=== PATIENT | female | born 1995 | race Caucasian/White ===

== ENCOUNTER 2021-06-10 09:27 | Emergency (ER) | payer SELFPAY | END 2021-06-10 11:42 | disposition home or self-care (01) | LOC: CSHERS 09:27 | DX: J06.9 Acute upper respiratory infection, unspecified (principal) | CPT/HCPCS: 71045; 87081; 87430 ==

== ENCOUNTER 2021-09-10 12:39 | Emergency (ER) | payer SELFPAY ==
[2021-09-10] MEDS ORDERED: Ketorolac Tromethamine 30 MG/ML VIAL ONE (13:08)
[2021-09-10] MEDS ORDERED: Morphine 4 MG/ML VIAL ONE ×3 (13:10→16:14)
[2021-09-10] MEDS ORDERED: Ondansetron PF 4 MG/2 ML Vial ONE ×3 (13:10→16:14)
[2021-09-10 13:20] LABS: #Basophils 0.1 10x3/uL (0.0-0.2); #Eosinphils 0.2 10x3/uL (0.0-0.5); #Monocytes 0.6 10x3/uL (0.0-1.1); #Neutrophils 8.4 10x3/uL (1.5-8.4); %Basophils 0.7 % (0.0-2.0); %Eosinophils 1.3 % (0.0-6.0); %Lymphocytes 19.8 % (18.0-47.0); %Monocytes 5.4 % (0.0-10.0); %Neutrophils 72.6 % (40.0-75.0); Hemoglobin 13.8 g/dL (12.0-15.5); Mean Corpuscular HGB CONC 34.1 g/dL (32.0-36.0); Mean Corpuscular Hemoglobin 30.2 pg (27.0-33.0); Mean Corpuscular Volume 88.6 fl (81.6-98.3); Mean Platelet Volume 9.2 fl (7.4-10.4); Platelet Count 340 10x3/uL (150-450); RBC Distribution Width 13.5 % (11.5-14.5); Red Blood Cell (RBC) Count 4.57 10x6/uL (3.90-5.03); White Blood Cell (WBC) Count 11.6 10x3/uL (3.5-10.5)
[2021-09-10 13:34] LABS: BHCG - Serum Negative (NEGATIVE); Pregs Control Background? CLEAR/WHITE (CLR/WHITE); Pregs Control Bar Appear? YES (CONTROL BAR)
[2021-09-10 13:41] LABS: Albumin 4.5 g/dL (3.5-5.0); Anion Gap 15 mmol/L (10-20); BUN (Urea Nitrogen) 16 mg/dL (7.0-18.7); Bilirubin, Total 0.6 mg/dL (0.2-1.2); Calc. Creatinine Clearance 0 mL/min (70-130); Calcium 9.7 mg/dL (7.8-10.44); Carbon Dioxide 23 mmol/L (22-29); Chloride 109 mmol/L (98-107); Globulin 3.4 g/dL (2.4-3.5); Glucose 98 mg/dL (70-105); Protein, Total 7.9 g/dL (6.0-8.3); Sodium 143 mmol/L (136-145)
[2021-09-10 13:42] LABS: ALT (SGPT) 21 U/L (8-55); AST (SGOT) 25 U/L (5-34); Alkaline Phosphatase 63 U/L (40-110); Lipase 14 U/L (8-78)
[2021-09-10 14:38] LABS: Bilirubin Neg (Negative); Blood, Urine 250 (Negative); Clarity Slightly Cloudy (Clear); Glucose, Urine (Dipstick) Normal (Negative); Ketone, Urine Negative (Negative); Leukocyte Negative (Negative); Nitrite Negative (Negative); Protein, Urine (Dipstick) Negative (Neg-Trace); Urobilinogen Normal mg/dL (Less than 2)
[2021-09-10 14:47] LABS: Bacteria/HPF 2+ HPF (None Seen); Mucous/LPF 1+ LPF (<2+); RBC/HPF 21-50 HPF (0-3); WBC/HPF 0-3 HPF (0-3)
== END 2021-09-10 17:54 | disposition home or self-care (01) ==
LOC: CSHERS 12:39
DX: N13.2 Hydronephrosis with renal and ureteral calculous obstruction (principal)
CPT/HCPCS: 74177; 80053; 81003; 81015; 83690; 84703; 85025; 87086; 96361; 96374; 96375; 96376; J1885; J2270; J2405